=== PATIENT | male | born 1995 | race Caucasian/White ===

== ENCOUNTER 2020-12-25 17:28 | Emergency (ER) | payer SELFPAY ==
--- NOTE | 2020-12-25 17:40 | ED.DENTAL ---
HPI - Dental/Oral General Chief complaint: Dental/Oral Stated complaint: Tooth Pain Time Seen by Provider: 12/25/20 17:40 Source: patient and RN notes reviewed Mode of arrival: ambulatory Limitations: no limitations History of Present Illness HPI Narrative: Dami is a 25-year-old male patient here today with swelling and tooth pain . Patient rates it a 5 out of 10 patient. Patient states his mother gave him something last night for inflammation ; patient was unsure of what medication it was. Patient states he has had dental issues for two months and has an appt. to get teeth 18/19 extracted next month. Patient starts pain and swelling became worse yesterday. Patient states it hurts to eat or drink. Related Data Home Medications Medication Instructions Recorded Confirmed No Home Medications 12/25/20 12/25/20 Allergies Allergy/AdvReac Type Severity Reaction Status Date / Time amoxicillin Allergy Unknown Verified 12/25/20 17:45 Review of Systems Review of Systems: CONSTITUTIONAL: Denies body aches, fever, chills, or sweats. EYES: Denies visual changes, redness, or discharge. ENT: Denies rhinorrhea, congestion, sore throat, or otalgia.+ tooth pain and swelling CARDIOVASCULAR: Denies chest pain, palpitations, or edema. RESPIRATORY: Denies cough or dyspnea. GASTROINTESTINAL: Denies abdominal pain, nausea, vomiting, or diarrhea. GENITOURINARY: Denies dysuria or hematuria. SKIN: Denies rash, itching, or wounds. MUSCULOSKELETAL: Denies back pain, joint pain, or myalgia. NEUROLOGIC: Denies headache, numbness, tingling, or weakness. PSYCH: Denies depression or anxiety. All systems reviewed & are unremarkable except as noted in HPI and below PMFSH Comments At time of signature, I have reviewed and agree with nursing past medical, surgical, social and family history unless otherwise noted. Please see nursing chart for further information. There is no relevant family history pertinent to the presenting complaint Exam Narrative: GENERAL: Well-appearing, well-nourished, and in no acute distress. HEAD: Normocephalic, atraumatic. EYES: EOMI. No redness or drainage. Conjunctivae normal. ENT: Mucous membranes pink and moist. Nares clear. No rhinorrhea. edema to left mandible, Teeth 18/19 with dental caries, erythema present NECK: Normal AROM. Supple. No lymphadenopathy. MUSCULOSKELETAL: No bony tenderness. EXTREMITIES: Normal range of motion. No edema. SKIN: Warm, dry, no rash. Capillary refill normal. Normal skin turgor. NEURO: No focal deficits. Alert and oriented x3. Gait steady. PSYCH: Normal affect. No signs of depression or anxiety. Course Vital Signs Vital signs: Reviewed. Pt has been instructed to follow up with his PCP regarding his elevated blood pressure today. MDM - Dental/Oral MDM Narrative Medical decision making narrative: Patient has swelling to the lower left mandible. Patient has erythema teeth 18 and 19. Dental caries is noted. Appointment for extraction of 18 and 19. Differential Diagnosis Differential diagnosis: Likely gingival abscess, dental caries, toothache and dental abscess Medical Records Attestation: I reviewed the patient's medical records. Critical Care Time Critical Care Time Critical Care Time: No Discharge Plan Discharge Clinical Impression: Dental abscess Patient Disposition: Home, Self-Care Condition: Stable Instructions: Antibiotic Form, Dental Abscess (ED) Additional Instructions: Take clindamycin until completed. May use ibuprofen (4 tablets) every 8 hours for pain/inflammation. Follow up with your dentist as scheduled next month. Follow up with your dentist sooner for any problems. Patient Language: Georgian Prescriptions: New clindamycin HCl [Cleocin HCl] 300 mg capsule 300 mg PO Q8H 10 Days Qty: 30 RF: 0 tramadol [Ultram] 50 mg tablet 50 mg PO Q6H PRN (Reason: pain) Qty: 10 RF: 0 No Action No Home Medications RF
[2020-12-25 17:41] VITALS: BP 140/79; PULSE 77; RESP 18; TEMP 36.8; O2SAT 100
== END 2020-12-25 18:09 | disposition home or self-care (01) ==
PROVIDERS: Emergency Provider Nurse Practitioner Family
DX: K04.7 Periapical abscess without sinus (principal)
CPT/HCPCS: 99213; G0463